=== PATIENT | female | born 1940 | race Native Hawaiian/Other Pacific Islander ===

== ENCOUNTER 2020-12-03 21:20 | Emergency (ER) | payer OTHER ==
[~2020-12-03] VITALS: Ht 160 cm; Wt 81.6 kg
[2020-12-03 22:25] LABS: PLATELET COUNT 273 K/uL (152-353)
[2020-12-03 22:30] LABS: POTASSIUM 3.5 mmol/L (3.6-5.2); SODIUM 138 mmol/L (136-145)
[2020-12-03 23:20] VITALS: BP 155/73; TEMP 98.2
[2020-12-04] MEDS ORDERED: AMLODIPINE BESYLATE PO (00:42)
[2020-12-04] MEDS ORDERED: LIPITOR10 MG PO (00:43)
[2020-12-04] MEDS ORDERED: CARV25TA PO (00:44)
[2020-12-04] MEDS ORDERED: CETI10TA PO (00:45)
[2020-12-04] MEDS ORDERED: ELIQUIS5 MG PO (00:47)
[2020-12-04] MEDS ORDERED: DIVALPROEX DR PO (00:47)
[2020-12-04] MEDS ORDERED: EZETIMIBE10 MG PO (00:48)
[2020-12-04] MEDS ORDERED: FISH OIL PO (00:51)
[2020-12-04] MEDS ORDERED: FURO40TA93 PO (00:52)
[2020-12-04] MEDS ORDERED: COZAAR100 MG PO (00:53)
[2020-12-04] MEDS ORDERED: OMEPRAZOLE DR PO (00:55)
[2020-12-04] MEDS ORDERED: DITROPAN XL10 MG PO (00:56)
[2020-12-04] MEDS ORDERED: POTASSIUM CL ER PO (00:57)
[2020-12-04] MEDS ORDERED: VITAMIN B-12500 MCG PO (00:58)
[2020-12-04] MEDS ORDERED: VITAMIN D35000 UNI6 PO (00:59)
[2020-12-04] MEDS ORDERED: ACETAMINOPHEN PO (01:01)
[2020-12-04] MEDS ORDERED: [UNRECOGNIZED DRUG - OTHER] PO (01:04)
[2020-12-04] MEDS ORDERED: ARTIFICIAL TEARS1 % OPTH ×2 (01:06→01:08)
[2020-12-04] MEDS ORDERED: BENZONATATE100 MG PO (01:10)
[2020-12-04] MEDS ORDERED: COUGH MT (01:11)
[2020-12-04] MEDS ORDERED: DOCU SOFT100 MG PO (01:13)
[2020-12-04] MEDS ORDERED: ACETAMINOPHEN PM PO (01:16)
[2020-12-04] MEDS ORDERED: ATTALIQ6 PO (01:18)
[2020-12-04] MEDS ORDERED: LOPERAMIDE2 MG PO (01:20)
[2020-12-09] MEDS ORDERED: DIVA250T PO (10:01)
[2020-12-09] MEDS ORDERED: RISP0.25 PO (10:01)
[2020-12-09] MEDS ORDERED: LEVO0.0529 PO (10:01)
[2020-12-09] MEDS ORDERED: MAGN400T4 PO (10:01)
[2020-12-09] MEDS ORDERED: COZAAR100 MG PO (10:02)
[2020-12-09] MEDS ORDERED: LIPITOR10 MG PO (10:04)
== END 2020-12-03 23:20 | disposition other institution (70) ==
LOC: ED 21:20
PROVIDERS: Family Medicine
DX: F22 Delusional disorders (principal); Z11.52 Encounter for screening for COVID-19; Z04.6 Encounter for general psychiatric examination, requested by authority
CPT/HCPCS: 36415; 80053; 81000; 85027; 87635; 93005; 99283; U0003

== ENCOUNTER 2020-12-07 14:50 | Emergency (ER) | payer OTHER ==
[~2020-12-07] VITALS: Ht 162.6 cm; Wt 73.0 kg
[2020-12-07 14:50] VITALS: TEMP 97.4
[~2020-12-07 14:50] MED LIST: ACETAMINOPHEN PM PO; ACETAMINOPHEN PO; AMLODIPINE BESYLATE PO; ARTIFICIAL TEARS1 % OPTH; ATTALIQ6 PO; BENZONATATE100 MG PO; CARV25TA PO; CETI10TA PO; COUGH MT; COZAAR100 MG PO; DITROPAN XL10 MG PO; DIVALPROEX DR PO; DOCU SOFT100 MG PO; ELIQUIS5 MG PO; EZETIMIBE10 MG PO; FISH OIL PO; FURO40TA93 PO; LIPITOR10 MG PO; LOPERAMIDE2 MG PO; OMEPRAZOLE DR PO; POTASSIUM CL ER PO; VITAMIN B-12500 MCG PO; VITAMIN D35000 UNI6 PO; [UNRECOGNIZED DRUG - OTHER] PO
[2020-12-07 16:30] VITALS: BP 138/58
[2020-12-09] MEDS ORDERED: DIVA250T PO (10:01)
[2020-12-09] MEDS ORDERED: LEVO0.0529 PO (10:01)
[2020-12-09] MEDS ORDERED: MAGN400T4 PO (10:01)
[2020-12-09] MEDS ORDERED: RISP0.25 PO (10:01)
[2020-12-09] MEDS ORDERED: COZAAR100 MG PO (10:02)
[2020-12-09] MEDS ORDERED: LIPITOR10 MG PO (10:04)
== END 2020-12-07 16:45 ==
LOC: ED 15:00
DX: S00.83XA Contusion of other part of head, initial encounter (principal); S80.01XA Contusion of right knee, initial encounter; W18.39XA Other fall on same level, initial encounter; Y93.89 Activity, other specified; Y92.89 Other specified places as the place of occurrence of the external cause
CPT/HCPCS: 99283